=== PATIENT | female | born 1995 | race Two or more races ===

== ENCOUNTER 2018-02-22 11:46 | Emergency (ER) | payer OTHER ==
[~2018-02-22] VITALS: Ht 162.6 cm; Wt 70.3 kg
[2018-02-22] MEDS ORDERED: PREDNISONE20 MG ORAL (12:42)
[2018-02-22] MEDS ORDERED: TESSALON PERLE100 MG ORAL (12:42)
[2018-02-22] MEDS ORDERED: ALBUTEROL SULF8.5 GM INH (12:42)
[2018-02-22] MEDS ORDERED: TYLENOL EXTRA500 MG ORAL (12:42)
--- NOTE | 2018-02-22 12:42 | Emergency Room Report ---
History of Present Illness General Chief Complaint: Upper Respiratory Illness Source: Patient Present Illness HPI 23-year-old female patient presents ER complaining of cough for the past week. Reports subjective fever and chills during this time. Denies hemoptysis. Reports coughing green yellow sputum. Reports a month and half ago she had a "lung infection" required antibiotics and is concerned that she may develop that again. Denies chest pain, shortness of breath. Denies history of asthma or bronchitis. Reports cough worse at night. Denies history of MS or heart disease. Denies recent travel. Denies calf pain. Denies taking control medications. Denies smoking cigarettes. Denies abdominal pain, vomiting, diarrhea. Denies sore throat. Allergies: Coded Allergies: No Known Allergies (Unverified , 02/22/18) Patient History Past Medical History: see triage record Now: No Reviewed Nursing Documentation: PMH: Agreed; PSxH: Agreed Nursing Documentation-PMH Past Medical History: No Stated History Review of Systems All Other Systems: negative except mentioned in HPI Physical Exam Vital Signs Date Time Temp Pulse Resp B/P (MAP) Pulse Ox O2 Delivery O2 Flow Rate FiO2 02/22/18 12:10 98.1 81 17 124/81 97 Room Air Sp02 EP Interpretation: reviewed, normal General Appearance: well appearing, no apparent distress, alert, GCS 15, non- toxic Head: normocephalic, atraumatic Eyes: bilateral eye normal inspection, bilateral eye PERRL ENT: hearing grossly normal, normal pharynx, no angioedema, normal voice, TMs + canals normal, uvula midline, moist mucus membranes, other - uvula midline Neck: full range of motion Respiratory: lungs clear, normal breath sounds, no rhonchi, no respiratory distress, no accessory muscle use, no wheezing, speaking full sentences, other - no stridor Cardiovascular #1: regular rate, rhythm, no edema Gastrointestinal: non tender, soft, no mass, non-distended, no guarding, no rebound Musculoskeletal: back normal, digits/nails normal, gait/station normal, normal range of motion, non-tender Neurologic: alert, oriented x3, responsive, motor strength/tone normal, sensory intact Skin: no rash Medical Decision Making PA Attestation Dr. Gillespie is my supervising Physician whom patient management has been discussed with. Diagnostic Impression: Primary Impression: Upper respiratory infection ER Course Pt presents to ED c/o cough 1 week. DDX considered but are not limited to influenza, viral URI, pneumonia, strep throat, rhinitis, sinusitis, otitis media, otitis externa. VITAL SIGNS are WNL, patient is afebrile. ER COURSE: PE benign. denies difficulty breathing, lungs clear to auscultation, does not require breathing treatment at this time. provided with cough medication and first dose of prednisone in the ER. Offered xray of chest and breathing treatment, patient declined. Lungs clear to auscultation, no wheezes, rhonci or rales. patient afebrile. Low suspicion for pneumonia, will not order CXR at this time. Likely viral etiology of symptoms. no signs of bacterial infection, does not require antibiotics at this time. Symptomatic treatment. drink plenty of fluids. Salt water gargles for sore throat. Followup with PCP for further treatment and/or referral as needed. ER precautions given. DISCHARGE: -Rx given for albuterol -Rx given for prednisone, first dose given in the ER -Rx given for Tessalon perles At this time pt is stable for d/c to home. Patient is resting comfortably, in no acute distress, nontoxic appearing. Patient to take medications as instructed Will provide with patient care instructions and any necessary prescriptions. Care plan and follow-up instructions provided. Patient instructed to follow-up with primary care provider in 3 - 5 days. Patient questions asked and answered. Patient reports understanding and agreement to treatment plan. ER precautions given. Patient instructed to return to ER immediately for any new or worsening of symptoms including but not limited to increasing SOB, persistent fever, intractable vomiting. - Please note that this Emergency Department Report was dictated using [employer] software, occasionally this can lead to erroneous entry secondary to interpretation by the dictation equipment. Last Vital Signs Date Time Temp Pulse Resp B/P (MAP) Pulse Ox O2 Delivery O2 Flow Rate FiO2 02/22/18 12:10 98.1 81 17 124/81 97 Room Air Disposition: HOME, SELF-CARE Condition: Stable Scripts Acetaminophen* (TYLENOL EXTRA STRENGTH*) 500 Mg Tablet 500 MG ORAL Q8H PRN for Prn Headache/Temp > 101, #30 TAB 0 Refills Prov: Gaurav Yee P.A. 02/22/18 Benzonatate* (TESSALON PERLE*) 100 Mg Capsule 100 MG ORAL THREE TIMES A DAY, #20 PERLE Prov: Gaurav Yee 02/22/18 Albuterol Sulfate* (ALBUTEROL SULFATE MDI*) 8.5 Gm Hfa.aer.ad 2 PUFF INH Q6H, #1 INH 0 Refills Prov: Gaurav Yee 02/22/18 Prednisone* (PREDNISONE*) 20 Mg Tablet 40 MG ORAL DAILY for 4 Days, #8 TAB Prov: Gaurav Yee 02/22/18 Patient Instructions: Upper Respiratory Infection, Adult Additional Instructions: Followup with primary care provider in 3 -5 days. Take medications as directed. Patient questions asked and answered. ER precautions given, patient instructed to return to ER immediately for any new or worsening of symptoms. Gaurav Yee Feb 22, 2018 12:42
[2018-02-22] MEDS ORDERED: Benzonatate 100mg Perles ORAL ONE (12:45)
[2018-02-22 13:35] VITALS: BP 124/81
[2018-02-22 13:38] VITALS: BP 124/81
== END 2018-02-22 13:38 | disposition home or self-care (01) ==
LOC: EMR 12:39
DX: J06.9 Acute upper respiratory infection, unspecified (principal)
CPT/HCPCS: 99283; J7512

== ENCOUNTER 2018-07-12 18:11 | Emergency (ER) | payer MEDICAID ==
[~2018-07-12] VITALS: Ht 162.6 cm; Wt 61.2 kg
[~2018-07-12 18:11] MED LIST: ALBUTEROL SULF8.5 GM INH; PREDNISONE20 MG ORAL; TESSALON PERLE100 MG ORAL; TYLENOL EXTRA500 MG ORAL
[2018-07-12 18:31] VITALS: BP 123/86
--- NOTE | 2018-07-12 18:32 | NUR ---
ED Nurse Note: pt walked in to ED due to coughing with yellow phlegm for 3 days. mask provide. respirations even and non-labored noted. breath sounds clear. no fever or chills reported. AAO x4. will wait for the further order.
--- NOTE | 2018-07-12 19:11 | Emergency Room Report ---
History of Present Illness General Chief Complaint: Upper Respiratory Illness Source: Patient Present Illness HPI 23-year-old female presents to the emergency department complaining of nasal congestion, rhinorrhea, phlegm in the throat and 5/10 in severity sore throat with intermittent cough 3 days. Patient denies fevers or chills. She reports this is the fourth time this year that she has experienced symptoms like this. She states that she had was given antibiotics last month which did not help her symptoms. Denies ear pain, high fevers, lethargy, neck pain/stiffness, irritability, photophobia dehydration, N/V/D. Denies Cp, Palpitations, LOC, AMS , seizures, paresthesias, or changes in Hearing or vision, no Sudden severe MONTANO. Denies hx of smoking, asthma or COPD. Allergies: Coded Allergies: No Known Allergies (Unverified , 02/22/18) Patient History Past Medical History: see triage record Past Surgical History: none Pertinent Family History: none Last Menstrual Period: 07/2018 Immunizations: UTD Reviewed Nursing Documentation: PMH: Agreed; PSxH: Agreed Nursing Documentation-PMH Past Medical History: No Stated History Review of Systems All Other Systems: negative except mentioned in HPI Physical Exam Vital Signs Date Time Temp Pulse Resp B/P (MAP) Pulse Ox O2 Delivery O2 Flow Rate FiO2 07/12/18 18:17 98.8 88 14 123/86 97 Room Air Sp02 EP Interpretation: reviewed, normal General Appearance: no apparent distress, alert, GCS 15, non-toxic Head: normocephalic, atraumatic Eyes: bilateral eye normal inspection, bilateral eye PERRL ENT: hearing grossly normal, normal voice, TMs + canals normal, nasal congestion, pharyngeal erythema Neck: full range of motion Respiratory: chest non-tender, lungs clear, normal breath sounds, no accessory muscle use, no wheezing, speaking full sentences Cardiovascular #1: regular rate, rhythm Musculoskeletal: back normal, gait/station normal, normal range of motion, non- tender Neurologic: alert, oriented x3, responsive, motor strength/tone normal, sensory intact, speech normal, grossly normal Psychiatric: judgement/insight normal Skin: normal color, no rash, warm/dry, well hydrated Lymphatic: no adenopathy Medical Decision Making PA Attestation Dr. Gillespie is my supervising Physician whom patient management has been discussed with. Diagnostic Impression: Primary Impression: Rhinitis Qualified Codes: J30.2 - Other seasonal allergic rhinitis Additional Impression: Post-nasal drainage ER Course 23-year-old female presents to the emergency department complaining of nasal congestion, rhinorrhea, phlegm in the throat and 5/10 in severity sore throat with intermittent cough 3 days. Patient denies fevers or chills. She reports this is the fourth time this year that she has experienced symptoms like this. She states that she had was given antibiotics last month which did not help her symptoms. Denies ear pain, high fevers, lethargy, neck pain/stiffness, irritability, photophobia dehydration, N/V/D. Denies Cp, Palpitations, LOC, AMS , seizures, paresthesias, or changes in Hearing or vision, no Sudden severe MONTANO. Denies hx of smoking, asthma or COPD. Ddx considered but are not limited to URI, pneumonia, PE, strep pharyngitis, meningitis. Vital signs: Pt. is afebrile, the remaining VS are WNL H&PE are most consistent with Rhinitis and PND - no meningeal signs, oropharynx is not involved, no evidence of bacterial infection at this time. ORDERS: none required at this time, the diagnosis is clinical ED INTERVENTIONS: None required at this time. --PT. EDUCATION: Discussed antibiotic resistance with inappropriate prescribing of antibiotics for viral illnesses. Discussed signs and symptoms to indicate viral illness versus bacterial illness. DISCHARGE: At this time pt. is stable for d/c to home. Will provide printed patient care instructions, and any necessary prescriptions. Care plan and follow up instructions have been discussed with the patient prior to discharge. Last Vital Signs Date Time Temp Pulse Resp B/P (MAP) Pulse Ox O2 Delivery O2 Flow Rate FiO2 07/12/18 18:31 98.8 88 14 123/86 97 Room Air Disposition: HOME, SELF-CARE Condition: Stable Scripts Guaifenesin (Guaifenesin) 1,200 Mg Tab.er.12h 1200 MG PO Q12HR for 10 Days, #20 TAB Prov: Trudy Glez 07/12/18 Cetirizine Hcl/Pseudoephedrine (ZYRTEC-D TABLET) 1 Each Tab.er.12h 1 EACH ORAL Q12HR for 10 Days, #20 TAB Prov: Trudy Glez 07/12/18 Departure Forms: Return to Work Return to Work Date: Jul 15, 2018 Work Restrictions: None Other Restrictions: May return Sooner if Symptoms have resolved. Return to Full Activity: Jul 15, 2018 Patient Instructions: Allergic Rhinitis Additional Instructions: Take medications as directed. Follow up with a Primary Care Provider in 3-5 days, even if your symptoms have resolved. --Please review list of primary care clinics, if you do not already have a primary care provider Return sooner to ED if new symptoms occur, or current symptoms become worse. - Please note that this Emergency Department Report was dictated using [employer] technology software, occasionally this can lead to erroneous entry secondary to interpretation by the dictation equipment. Trudy Glez Jul 12, 2018 19:11
[2018-07-12] MEDS ORDERED: ZYRTEC-D TABLE1 EACH ORAL (19:12)
[2018-07-12] MEDS ORDERED: GUAIFENESIN1200 MG PO (19:12)
--- NOTE | 2018-07-12 19:18 | NUR ---
HAND-OFF: Report given to BRYSON Stinson.
[2018-07-12 19:26] VITALS: BP 119/70
--- NOTE | 2018-07-12 19:26 | NUR ---
ED Nurse Note: Pt cleared by MD. Fall, ambulatory with steady gait. Discharge paperwork and prescriptions provided. Pt verbalized understanding of all instructions. ID band removed. All belongings taken with patient.
== END 2018-07-12 19:26 | disposition home or self-care (01) ==
LOC: EMR 18:50
DX: J31.0 Chronic rhinitis (principal); R09.82 Postnasal drip
CPT/HCPCS: 99283